=== PATIENT | female | born 1945 | race Caucasian/White ===

== ENCOUNTER 2016-09-16 14:18 | Emergency (ER) | payer OTHER ==
[~2016-09-16] VITALS: Ht 160 cm; Wt 74.0 kg
[2016-09-16 14:20] VITALS: BP 163/77; PULSE 80; RESP 18; TEMP 98.4; O2SAT 98
--- NOTE | 2016-09-16 14:27 | PD ---
Physical Exam Date Seen by Provider: Sep 16, 2016 Time Seen by Provider: 14:22 Narrative 71 y/o female presents with Left Knee pain and swelling since yesterday. Denies Injury. Patient was seen in [place] at the Urgent Care and referred here. No Fever Chills or other constitutional symptoms. Pain 5/10 but worse with movement. No Hx. Gout or Rheumatoid Arthritis. + Tightness in Both Calves. Vital signs reviewed. Patient stable. Awaiting Bed placement. Data Data Last Documented VS Vital Signs Date Time Temp Pulse Resp B/P Pulse Ox O2 Delivery O2 Flow Rate FiO2 09/16/16 14:20 98.4 80 18 163/77 98 MDM Medical Record Reviewed: Yes Supervised Visit with DAVE: Yes Condition: Stable Giuseppe Tony Sep 16, 2016 14:27
--- NOTE | 2016-09-16 17:03 | RADRPT ---
EXAM DATE/TIME: 09/16/2016 16:16 [facility] COMPARISON: No previous studies available for comparison. INDICATIONS : Pain and swelling around left knee for 24 hours, denies trauma MEDICAL HISTORY : wears brace on left lower leg for thirty years SURGICAL HISTORY : None. ENCOUNTER: Initial ACUITY: 1 day PAIN SCORE: 10/10 LOCATION: Left knee FINDINGS: Four view examination of the left knee demonstrates no evidence of fracture or dislocation. Increased bone density is noted. Small joint effusion is present.. The articular surfaces are intact. CONCLUSION: Small joint effusion. No evidence of acute fracture or dislocation. Decreased bone density. Michael Westbrook MD on September 16, 2016 at 17:00 Board Certified Radiologist. This report was verified electronically.
[2016-09-16] MEDS ORDERED: CYMB60CA PO (18:43)
[2016-09-16] MEDS ORDERED: BENI20TA5 PO (18:43)
--- NOTE | 2016-09-16 19:55 | RADRPT ---
EXAM DATE/TIME: 09/16/2016 19:08 [facility] COMPARISON: No previous studies available for comparison. INDICATIONS : Left leg swelling and pain. MEDICAL HISTORY : Hypercholesterolemia. Arthritis. Carcinoma, cervicle. Anxiety. SURGICAL HISTORY : Spinal surgery. ENCOUNTER: Initial ACUITY: 1 day PAIN SCORE: 3/10 LOCATION: Left leg. TECHNIQUE: Venous ultrasound of the leg was performed from the inguinal ligament to the proximal calf. Real-jaylen e, color Doppler and spectral tracing, compression and augmentation techniques were used. FINDINGS: There is normal compressibility of the deep venous system from the inguinal region to the proximal ca lf. No echogenic clot is seen in the lumen of the common femoral, femoral, popliteal, and posterior tibial veins. There is a normal response of the venous system to proximal and distal augmentation an d respiration. CONCLUSION: 1. Negative for deep venous thrombosis. Jake Glez MD on September 16, 2016 at 19:53 Board Certified Radiologist. This report was verified electronically.
[2016-09-16] MEDS ORDERED: PANT20TA2 PO (20:03)
[2016-09-16] MEDS ORDERED: NAPR250T PO (20:03)
--- NOTE | 2016-09-16 20:03 | PD ---
HPI Chief Complaint: Musculoskeletal Complaint Time Seen by Provider: 17:57 Travel History International Travel<30 days: No Contact w/Intl Traveler<30days: No Traveled to known affect area: No History of Present Illness HPI This 8-year-old woman who presents to the emergency department with left knee pain and swelling. She also had tightness in both her calves, and some pain up in her thigh. She went to an urgent care said she had effusion in the knee and needed to have it investigated. They're worried she may have an infection in the knee. No history of gout. No history of infections. 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 History Past Medical History Narrative Medical Neck spasms Back pains Sciatica Tetanus Vaccination: < 5 Years Influenza Vaccination: Yes Social History Alcohol Use: Yes (1 BEER DAILY) Tobacco Use: Yes (1 PPD) Allergies-Medications (Allergen,Severity, Reaction): Coded Allergies: Reglan (Verified Allergy, Severe, can't breathe, 09/16/16) Reported Meds & Prescriptions Reported Meds & Active Scripts Active Reported Benicar (Olmesartan) 20 Mg Tab 20 Mg PO DAILY Cymbalta DR (Duloxetine HCl) 60 Mg Capdr 60 Mg PO DAILY Review of Systems Except as stated in HPI: all other systems reviewed are Neg Physical Exam Narrative GENERAL: Well-appearing 71-year-old woman, no acute distress. SKIN: Warm and dry. CARDIOVASCULAR: Warm and well perfused. RESPIRATORY: Normal rate and effort. MUSCULOSKELETAL: Focused examination before sugars reveals a little bit of warmth and effusion to the left knee. She has full range of motion. There is a lot of crepitus. She looks otherwise well. The right knee is unremarkable. Neurovascularly intact in the right leg distally. 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 NEUROLOGICAL: Awake and alert. No gross deficits. Data Data Last Documented VS Vital Signs Date Time Temp Pulse Resp B/P Pulse Ox O2 Delivery O2 Flow Rate FiO2 09/16/16 14:20 98.4 80 18 163/77 98 Orders Knee, Complete (4vws) (09/16/16 ) Us Leg Venous Doppler (09/16/16 ) MDM Medical Decision Making Medical Screen Exam Complete: Yes Emergency Medical Condition: Yes Interpretation(s) Left knee x-ray: Small effusion. Lower extremity ultrasound: Negative Differential Diagnosis Inflammatory arthritis, septic arthritis, gout, other Narrative Course 71-year-old woman, left knee effusion, mild, likely inflammatory. Diagnosis Primary Impression: Inflammatory arthritis Additional Instructions: Take Naprosyn as prescribed. Take pantoprazole as prescribed. All your primary doctor in the next 2-4 days. Return to the emergency department for any new or worsening symptoms. Med/Other Pt SpecificInfo: Prescription(s) given Scripts Pantoprazole 20 Mg Tab20 Mg PO DAILY 7 Days Ref 0 Prov:Sean Story MD 09/16/16 Naproxen 250 Mg [id number] Mg PO BID 7 Days Ref 0 Prov:Sean Story MD 09/16/16 Disposition: 01 DISCHARGE HOME Condition: Stable Sean Story MD Sep 16, 2016 20:03
== END 2016-09-16 20:16 | disposition home or self-care (01) ==
LOC: NEPD 14:18
DX: M13.862 Other specified arthritis, left knee (principal); F10.10 Alcohol abuse, uncomplicated; F17.290 Nicotine dependence, other tobacco product, uncomplicated
CPT/HCPCS: 73564; 93971; 99283